=== PATIENT | female | born 1940 | race Caucasian/White ===

== ENCOUNTER 2018-10-30 08:04 | Inpatient (IN) | payer MEDICARE, OTHER ==
[~2018-10-30] VITALS: Ht 175.3 cm; Wt 76.6 kg
--- NOTE | 2018-10-30 08:11 | NUR ---
BIB [facility] FOR C/O CP STARTED 3 DAYS AGO W/ N/V FOR THE PAST 2 DAYS. PT STATES SHE HAD N/V RESOLVED TODAY. ALSO HAD NONPRODUCTIVE COUGH. PT RESTING ON GURNEY. EDPA LONG AT BEDSIDE. MONITORS APPLIED. WARM BLANKET PROVIDED. PIV INITIATED. EKG COMPLETED.
[2018-10-30] MEDS ORDERED: GEMF600T8 PO (08:24)
[2018-10-30] MEDS ORDERED: CHOL100011 PO (08:24)
[2018-10-30] MEDS ORDERED: LEVO25TA4 PO (08:24)
[2018-10-30] MEDS ORDERED: [UNRECOGNIZED DRUG - OTHER] NAS (08:24)
[2018-10-30] MEDS ORDERED: ASPI-515 PO (08:24)
[2018-10-30] MEDS ORDERED: METO25TA2 PO (08:24)
[2018-10-30] MEDS ORDERED: CYAN100014 PO (08:24)
[2018-10-30] MEDS ORDERED: MONT10TA9 PO (08:24)
[2018-10-30] MEDS ORDERED: ESTR0.5T PO (08:24)
[2018-10-30] MEDS ORDERED: MAGN500T PO (08:24)
[2018-10-30] MEDS ORDERED: SPIR1TAB3 PO (08:24)
[2018-10-30] MEDS ORDERED: OMEP10CA4 PO (08:24)
[2018-10-30] MEDS ORDERED: ONDANSETRON 2MG/ML, 2ML ONE (08:41)
[2018-10-30] MEDS ORDERED: MORPHINE SULFATE 4 MG/ML, 1ML ONE ×2 (08:42→10:31)
[2018-10-30 08:46] LABS: BASOPHILS # (AUTO) 0.01 x10^3/uL (0-0.1); BASOPHILS % (AUTO) 0 % (0-1); EOSINOPHILS # (AUTO) 0.02 x10^3/uL (0-0.4); EOSINOPHILS % (AUTO) 0 % (1-7); LYMPHOCYTES # (AUTO) 1.16 x10^3/uL (1-3.4); LYMPHOCYTES % (AUTO) 9 % (22-44); MD NO; MEAN CORPUSCULAR HEMOGLOBIN 32.2 pg (27.0-34.8); MEAN CORPUSCULAR VOLUME 97.6 fL (80-100); MONOCYTES % (AUTO) 9 % (2-9); NEUTROPHILS # (AUTO) 10.28 x10^3/uL (1.8-6.8); NEUTROPHILS % (AUTO) 82 % (42-75); PLATELET COUNT 300 x10^3/uL (130-400); RED BLOOD COUNT 4.15 x10^6/uL (3.82-5.3); RED CELL DISTRIBUTION WIDTH 12.6 % (9.6-15.2)
[2018-10-30 08:58] LABS: ALANINE AMINOTRANSFERASE 60 U/L (12-78); ALBUMIN 3.7 g/dL (3.4-5.0); ANION GAP 9 mmol/L (5-15); CALCIUM 8.9 mg/dL (8.5-10.1); CHLORIDE 101 mmol/L (98-107); CREATININE 1.37 mg/dL (0.55-1.02)
[2018-10-30] MEDS ORDERED: MORPHINE SULFATE 4 MG/ML, 1ML IVPush ONE (09:00)
[2018-10-30] MEDS ORDERED: ONDANSETRON 2MG/ML, 2ML IVPush ONE (09:00)
[2018-10-30 09:02] LABS: ALKALINE PHOSPHATASE 32 U/L (45-117); BILIRUBIN,TOTAL 0.9 mg/dL (0.2-1.0); TOTAL PROTEIN 7.9 g/dL (6.4-8.2)
--- NOTE | 2018-10-30 09:09 | NUR ---
PT TROP 19.0 SECOND EKG COMPLETED AND PT TAKEN IMMEDIATELY TO CT.
[2018-10-30] MEDS ORDERED: OMNIPAQUE 350 MG/ML, 100ML BOTTLE ONE (09:26)
--- NOTE | 2018-10-30 09:40 | NUR ---
SAT INSTRUCTOR AT BEDSIDE.
[2018-10-30] MEDS ORDERED: morphine SULFATE 10 MG/ML, 1ML IVPush ONE (10:30)
[2018-10-30] MEDS ORDERED: NITROGLYCERIN OINT 2%, 1GM TP ONE ×2 (10:30→10:31)
[2018-10-30] MEDS ORDERED: HEPARIN 25,000 UNITS/500ML PMX 500 ML ONE (10:58)
[2018-10-30] MEDS ORDERED: HEPARIN 5,000 UNITS/ML, 1ML ONE (10:58)
[2018-10-30] MEDS ORDERED: HEPARIN 5,000 UNITS/ML, 1ML IV PRN ×2 (11:00→13:30)
[2018-10-30] MEDS ORDERED: HEPARIN 25,000 UNITS/500ML PMX 500 ML IV PRN ×2 (11:00→13:30)
[2018-10-30] MEDS ORDERED: HEPARIN 5,000 UNITS/ML, 1ML IV ONE (11:00)
--- NOTE | 2018-10-30 11:15 | NUR ---
PT RESTING ON GURNEY. NADN. ESPINOZA.
[2018-10-30] MEDS ORDERED: MIDAZOLAM 1 MG/ML, 5ML ONE (11:22)
[2018-10-30] MEDS ORDERED: FENTANYL PF 100 MCG/2ML ONE (11:22)
[2018-10-30] MEDS ORDERED: TICAGRELOR 90 MG TABLET ONE (11:22)
[2018-10-30] MEDS ORDERED: VERAPAMIL 2.5 MG/ML, 2ML ONE (11:22)
[2018-10-30] MEDS ORDERED: HEPARIN 1,000 UNITS/ML, 10ML ONE (11:22)
[2018-10-30] MEDS ORDERED: NITROGLYCERIN 5 MG/ML, 10ML ONE (11:22)
[2018-10-30] MEDS ORDERED: LIDOCAINE-MPF 1%, 5ML ONE (11:22)
[2018-10-30] MEDS ORDERED: BIVALIRUDIN 250 MG ONE (11:22)
[2018-10-30] MEDS ORDERED: hydrALAzine 20 MG/ML, 1ML IVPush PRN (11:30)
[2018-10-30] MEDS ORDERED: ASPIRIN 81 MG TABLET EC PO SCH (11:30)
[2018-10-30] MEDS ORDERED: ACETAMINOPHEN 325 MG TABLET PO PRN (11:30)
--- NOTE | 2018-10-30 11:35 | NUR ---
PT GOING TO MANAGER DEVELOPMENT.
[2018-10-30] MEDS ORDERED: PHENYLEPHRINE 10 MG/ML ONE (12:07)
[2018-10-30] MEDS ORDERED: ADENOSINE 6 MG/2 ML ONE (12:12)
[2018-10-30] MEDS: ASPIRIN 81 MG TABLET EC PO SCH ×2 (12:30→14:27)
[2018-10-30 13:02] VITALS: BP 98/51
[2018-10-30] MEDS: SPIRONOLACT/HCTZ 25/25MG TABLET PO SCH (13:30)
[2018-10-30] MEDS: SODIUM CHLORIDE 0.9% 1,000 ML IV SCH (13:32)
[2018-10-30] MEDS: OMEPRAZOLE 20 MG CAPSULE.DR PO SCH (14:27)
[2018-10-30] MEDS: LEVOTHYROXINE 50 MCG TABLET PO SCH (14:29)
[2018-10-30] MEDS: morphine SULFATE 10 MG/ML, 1ML IVPush PRN ×2 (15:13→20:54)
[2018-10-30] MEDS: ONDANSETRON 2MG/ML, 2ML IVPush PRN (15:18)
[2018-10-30 17:18] LABS: MICROSCOPIC AUTO
[2018-10-30 17:19] LABS: CULTURE INDICATED? NO
[2018-10-30] MEDS: MAGNESIUM OXIDE 400 MG TABLET PO SCH (20:41)
[2018-10-30] MEDS: ATORVASTATIN 80 MG TABLET PO SCH (20:41)
[2018-10-30] MEDS: ESTRADIOL 0.5 MG TABLET PO SCH (20:41)
[2018-10-30] MEDS: CHOLECALCIFEROL 5,000u TAB PO SCH (20:42)
[2018-10-30] MEDS: GEMFIBROZIL 600 MG TABLET PO SCH (20:42)
[2018-10-30] MEDS: MONTELUKAST 10 MG TABLET PO SCH (20:42)
[2018-10-30] MEDS: METOPROLOL SUCCINATE 25 MG TAB.ER.24H PO SCH (20:42)
[2018-10-30] MEDS: TICAGRELOR 90 MG TABLET PO SCH (20:42)
[2018-10-31] MEDS: morphine SULFATE 10 MG/ML, 1ML IVPush PRN (01:00)
[2018-10-31 03:52] VITALS: BP 94/61
[2018-10-31] MEDS: SODIUM CHLORIDE 0.9% 1,000 ML IV SCH ×3 (04:27→09:11)
[2018-10-31] MEDS: LEVOTHYROXINE 50 MCG TABLET PO SCH (05:20)
[2018-10-31 05:28] LABS: BASOPHILS # (AUTO) 0.03 x10^3/uL (0-0.1); BASOPHILS % (AUTO) 0 % (0-1); EOSINOPHILS % (AUTO) 2 % (1-7); LYMPHOCYTES # (AUTO) 1.16 x10^3/uL (1-3.4); LYMPHOCYTES % (AUTO) 13 % (22-44); MD NO; MEAN CORPUSCULAR HGB CONC 33.8 g/dL (32.4-35.8); MEAN CORPUSCULAR VOLUME 97.5 fL (80-100); MEAN PLATELET VOLUME 8.8 fL (7.4-10.4); MONOCYTES # (AUTO) 1.21 x10^3/uL (0.2-0.8); MONOCYTES % (AUTO) 14 % (2-9); NEUTROPHILS # (AUTO) 6.17 x10^3/uL (1.8-6.8); NEUTROPHILS % (AUTO) 70 % (42-75); PLATELET COUNT 257 x10^3/uL (130-400); RED BLOOD COUNT 3.47 x10^6/uL (3.82-5.3); RED CELL DISTRIBUTION WIDTH 12.4 % (9.6-15.2)
[2018-10-31 05:31] LABS: ALANINE AMINOTRANSFERASE 63 U/L (12-78); ALBUMIN 2.9 g/dL (3.4-5.0); ANION GAP 7 mmol/L (5-15); CALCIUM 8.4 mg/dL (8.5-10.1); CHLORIDE 105 mmol/L (98-107)
[2018-10-31 05:34] LABS: ALKALINE PHOSPHATASE 38 U/L (45-117); BILIRUBIN,TOTAL 1.5 mg/dL (0.2-1.0); CREATININE 1.34 mg/dL (0.55-1.02); TOTAL PROTEIN 6.4 g/dL (6.4-8.2)
[2018-10-31] MEDS: ONDANSETRON 2MG/ML, 2ML IVPush PRN (06:47)
[2018-10-31] MEDS: SPIRONOLACT/HCTZ 25/25MG TABLET PO SCH (09:00)
[2018-10-31] MEDS: GEMFIBROZIL 600 MG TABLET PO SCH (09:24)
[2018-10-31] MEDS: TICAGRELOR 90 MG TABLET PO SCH ×2 (09:24→21:33)
[2018-10-31] MEDS: CYANOCOBALAMIN 1,000 MCG TABLET PO SCH (09:24)
[2018-10-31] MEDS: METOPROLOL SUCCINATE 25 MG TAB.ER.24H PO SCH (09:25)
[2018-10-31] MEDS: CHOLECALCIFEROL 5,000u TAB PO SCH (09:25)
[2018-10-31] MEDS: OMEPRAZOLE 20 MG CAPSULE.DR PO SCH (09:25)
[2018-10-31] MEDS: MONTELUKAST 10 MG TABLET PO SCH (21:33)
[2018-10-31] MEDS: MAGNESIUM OXIDE 400 MG TABLET PO SCH (21:33)
[2018-10-31] MEDS: ESTRADIOL 0.5 MG TABLET PO SCH (21:33)
[2018-10-31] MEDS: ATORVASTATIN 80 MG TABLET PO SCH (21:33)
[2018-11-01 04:00] VITALS: BP 104/49
[2018-11-01] MEDS: LEVOTHYROXINE 50 MCG TABLET PO SCH (06:33)
[2018-11-01] MEDS: OMEPRAZOLE 20 MG CAPSULE.DR PO SCH (09:42)
[2018-11-01] MEDS: TICAGRELOR 90 MG TABLET PO SCH ×2 (09:42→21:13)
[2018-11-01] MEDS: CHOLECALCIFEROL 5,000u TAB PO SCH (09:42)
[2018-11-01] MEDS: ASPIRIN 81 MG TABLET EC PO SCH (09:43)
[2018-11-01] MEDS: CYANOCOBALAMIN 1,000 MCG TABLET PO SCH (09:43)
[2018-11-01 09:51] VITALS: BP 87/52
[2018-11-01] MEDS: LISINOPRIL 5 MG TABLET PO SCH (10:00)
[2018-11-01] MEDS ORDERED: LISINOPRIL 5 MG TABLET PO SCH (10:00)
[2018-11-01 10:22] VITALS: BP 106/62
[2018-11-01 15:35] VITALS: BP 103/54
[2018-11-01] MEDS: MONTELUKAST 10 MG TABLET PO SCH (21:00)
[2018-11-01 21:02] VITALS: BP 100/65
[2018-11-01] MEDS: MAGNESIUM OXIDE 400 MG TABLET PO SCH (21:12)
[2018-11-01] MEDS: ESTRADIOL 0.5 MG TABLET PO SCH (21:12)
[2018-11-01] MEDS: ATORVASTATIN 80 MG TABLET PO SCH (21:13)
[2018-11-02 01:45] VITALS: BP 117/63
[2018-11-02] MEDS: LEVOTHYROXINE 50 MCG TABLET PO SCH (05:33)
[2018-11-02 08:01] VITALS: BP 118/75
[2018-11-02] MEDS: TICAGRELOR 90 MG TABLET PO SCH (08:03)
[2018-11-02] MEDS: CHOLECALCIFEROL 5,000u TAB PO SCH (08:03)
[2018-11-02] MEDS: CYANOCOBALAMIN 1,000 MCG TABLET PO SCH (08:03)
[2018-11-02] MEDS: OMEPRAZOLE 20 MG CAPSULE.DR PO SCH (08:03)
[2018-11-02] MEDS: LISINOPRIL 5 MG TABLET PO SCH (08:05)
[2018-11-02] MEDS: ASPIRIN 81 MG TABLET EC PO SCH (08:11)
[2018-11-02] MEDS ORDERED: METOPROLOL SUCCINATE 25 MG TAB.ER.24H PO SCH (09:00)
[2018-11-02 09:05] VITALS: BP 122/72
[2018-11-02] MEDS ORDERED: LISI5TAB7 PO (09:20)
[2018-11-02] MEDS ORDERED: TICA90TA PO (09:20)
[2018-11-02] MEDS ORDERED: ATOR40TA PO (09:28)
== END 2018-11-02 11:32 | disposition home health service (06) | DRG 246 ==
LOC: ED 09:06 → EDIP 09:42 → CCU 12:23 → ICU 10-31 10:30 → 5SO 11-01 05:30 → DCLOUNGE 11-02 10:50
PROVIDERS: ADMIT Internal Medicine; ATTEND Internal Medicine
PROC: 027034Z Dilation of Coronary Artery, One Artery with Drug-eluting Intraluminal Device, Percutaneous Approach (ICD-10-PCS; principal; 2018-10-30)
PROC: 4A023N7 Measurement of Cardiac Sampling and Pressure, Left Heart, Percutaneous Approach (ICD-10-PCS; 2018-10-30)
PROC: B2111ZZ Fluoroscopy of Multiple Coronary Arteries using Low Osmolar Contrast (ICD-10-PCS; 2018-10-30)
PROC: B2151ZZ Fluoroscopy of Left Heart using Low Osmolar Contrast (ICD-10-PCS; 2018-10-30)
DX: I21.4 Non-ST elevation (NSTEMI) myocardial infarction (principal); N17.0 Acute kidney failure with tubular necrosis; E03.9 Hypothyroidism, unspecified; E53.8 Deficiency of other specified B group vitamins; E55.9 Vitamin D deficiency, unspecified; E78.5 Hyperlipidemia, unspecified; I10 Essential (primary) hypertension; K21.9 Gastro-esophageal reflux disease without esophagitis; K57.30 Diverticulosis of large intestine without perforation or abscess without bleeding; M51.36 Other intervertebral disc degeneration, lumbar region; Z90.710 Acquired absence of both cervix and uterus; Z90.49 Acquired absence of other specified parts of digestive tract; Z86.73 Personal history of transient ischemic attack (TIA), and cerebral infarction without residual deficits; Z87.11 Personal history of peptic ulcer disease; Z87.891 Personal history of nicotine dependence; Z90.722 Acquired absence of ovaries, bilateral; Z95.5 Presence of coronary angioplasty implant and graft; Z88.0 Allergy status to penicillin; Z88.2 Allergy status to sulfonamides; Z91.013 Allergy to seafood; I25.10 Atherosclerotic heart disease of native coronary artery without angina pectoris
CPT/HCPCS: 36415; 71046; 71275; 74175; 80053; 81001; 83735; 83880; 84100; 84484; 85025; 85520; 87081; 93005; 93306; 93458; 96374; 96375; 96376; 99156; C1769; C1894; C9600; G0378; J0153; J0583; J1644; J2250; J2405; J3010; Q9967; C1725; C1874; C1887; J2270; J2370; J7030

== ENCOUNTER → 2021-02-02 | Outpatient (CLI) | payer MEDICARE, OTHER ==
[~2021-02-02] MED LIST: ASPI-963 PO; ATOR40TA PO; CHOL100011 PO; CYAN100014 PO; ESTR0.5T PO; GEMF-31 PO; LEVO25TA4 PO; LISI-170 PO; LISI5TAB7 PO; MAGN500T PO; METO25TA2 PO; MONT10TA17 PO; OMEP10CA5 PO; REGADENOSON 0.4 MG/5 ML SYRINGE ONE; SPIR1TAB3 PO; TICA90TA PO; [UNRECOGNIZED DRUG - OTHER] NAS
== END | disposition home or self-care (01) ==
LOC: CFH 07:26
PROVIDERS: ATTEND Internal Medicine Cardiovascular Disease
DX: I25.10 Atherosclerotic heart disease of native coronary artery without angina pectoris (principal); R06.02 Shortness of breath; I10 Essential (primary) hypertension
CPT/HCPCS: 78452; 93017; A9502; J2785